=== PATIENT | male | born 1965 | race Two or more races ===

== ENCOUNTER → 2021-10-28 | Emergency (ER) | payer OTHER ==
[~2021-10-28] VITALS: Ht 182.9 cm; Wt 111.1 kg
[~2021-10-28] MED LIST: ADULT ASPIRIN81 MG PO; GLUMETZA500 MG PO; GRALISE600 MG PO; ZESTRIL10 M1 PO
== END | disposition home or self-care (01) ==
LOC: ER 15:38
DX: S61.212A Laceration without foreign body of right middle finger without damage to nail, initial encounter (principal); W31.89XA Contact with other specified machinery, initial encounter; Y93.89 Activity, other specified; Y92.89 Other specified places as the place of occurrence of the external cause; Y99.8 Other external cause status